=== PATIENT | female | born 1965 | race Caucasian/White ===

== ENCOUNTER → 2017-06-01 | Outpatient (CLI) | payer OTHER ==
[~2017-06-01] MED LIST: CRUTCH3 USE; HYDACE10B PO; NAPR500 PO; Norco 5-325 Ta1 EACH PO; Silvadene20 GM TOP
[2017-06-02 18:10] LABS: Microalbumin, Urine Quant. <5.000 mg/L (0.000-20.000); Protein, Urine Quantitative <5.0 mg/dL (0.0-11.9)
== END ==
LOC: LAB 14:30 → LAB SHORT 14:30 → LAB FUT 05-31 11:40
PROVIDERS: Internal Medicine Nephrology
DX: N18.3 Chronic kidney disease, stage 3 (moderate) (principal); N25.81 Secondary hyperparathyroidism of renal origin; D63.1 Anemia in chronic kidney disease; E55.9 Vitamin D deficiency, unspecified; E78.00 Pure hypercholesterolemia, unspecified; R76.9 Abnormal immunological finding in serum, unspecified; R94.5 Abnormal results of liver function studies; R94.6 Abnormal results of thyroid function studies
CPT/HCPCS: 81050; 82043; 84156

== ENCOUNTER 2022-11-21 06:32 | Day surgery (SDC) | payer BC ==
[~2022-11-21] VITALS: Ht 157.5 cm; Wt 76.1 kg
[2022-11-21] MEDS ORDERED: ALLO300 (07:10)
[2022-11-21] MEDS ORDERED: ASPI81CH (07:10)
[2022-11-21] MEDS ORDERED: ATORVASTATIN CA40 M1 (07:10)
[2022-11-21] MEDS ORDERED: THERA-D2000 UNIT (07:10)
[2022-11-21] MEDS ORDERED: DOTTI1 EA18 (07:11)
[2022-11-21] MEDS ORDERED: PROG100 (07:11)
[2022-11-21] MEDS ORDERED: METF500 (07:11)
[2022-11-21] MEDS ORDERED: LISI20 (07:11)
[2022-11-21] MEDS ORDERED: TRULICITY1.5 MG/0.1 (07:11)
[2022-11-21 08:49] VITALS: BP 115/68
== END 2022-11-21 08:43 | disposition home or self-care (01) ==
LOC: ORSCSDS 06:32
PROVIDERS: Internal Medicine Gastroenterology
PROC: 0DJD8ZZ Inspection of Lower Intestinal Tract, Via Natural or Artificial Opening Endoscopic (ICD-10-PCS; principal; 2022-11-21 08:00)
DX: Z12.11 Encounter for screening for malignant neoplasm of colon (principal); K57.30 Diverticulosis of large intestine without perforation or abscess without bleeding; I10 Essential (primary) hypertension; E11.9 Type 2 diabetes mellitus without complications; Z79.82 Long term (current) use of aspirin; Z79.84 Long term (current) use of oral hypoglycemic drugs; Z79.899 Other long term (current) drug therapy
CPT/HCPCS: 82947; J2704; J7120

== ENCOUNTER 2023-10-23 15:37 | Emergency (ER) | payer BC ==
[~2023-10-23] VITALS: Ht 157.5 cm; Wt 81.2 kg
[~2023-10-23 15:37] MED LIST changes: +ALLO300; +ASPI81CH; +ATORVASTATIN CA40 M1; +DOTTI1 EA18; +LISI20; +METF500; +PROG100; +THERA-D2000 UNIT; +TRULICITY1.5 MG/0.1
[2023-10-23] MEDS ORDERED: Ondansetron HCl 2 MG / ML 2ML Vial IV ONE (15:50)
[2023-10-23 17:42] LABS: BASOPHILS ABSOLUTE AUTO 0.05 K/mm3 (0.00-0.23); BASOPHILS PERCENT AUTO 1 % (0-2); EOSINOPHILS ABSOLUTE AUTO 0.09 K/mm3 (0.00-0.68); EOSINOPHILS PERCENT AUTO 1 % (0-6); Hematocrit 45.4 % (33.0-51.0); Hemoglobin 15.1 g/dL (11.5-16.0); IMMATURE GRAN ABSOLUTE AUTO 0.05 K/mm3 (0.00-0.10); IMMATURE GRAN PERCENT AUTO 1 % (0-1); LYMPHOCYTES ABSOLUTE AUTO 3.23 K/mm3 (0.84-5.20); LYMPHOCYTES PERCENT AUTO 32 % (21-46); MONOCYTES ABSOLUTE AUTO 0.66 K/mm3 (0.16-1.47); MONOCYTES PERCENT AUTO 7 % (4-13); Mean Corpuscular HGB 30.3 pg (26.0-34.0); Mean Corpuscular HGB Conc 33.3 g/dL (31.5-36.5); Mean Corpuscular Volume 91 fL (80-100); NEUTROPHILS ABSOLUTE AUTO 5.92 K/mm3 (1.96-9.15); NEUTROPHILS PERCENT AUTO 59 % (41-73); RDW Coefficient Variation 14.3 % (11.7-14.2); RDW Standard Deviation 47.3 fL (35.1-46.3); Red Blood Cell Count 4.99 M/mm3 (3.80-5.20)
[2023-10-23 17:54] LABS: Albumin, Blood 4.4 g/dL (3.4-5.0); Albumin/Globulin Ratio 1.2 (0.8-1.8); Bilirubin, Total 0.9 mg/dL (0.1-1.0); Bun/Creatinine Ratio 10.3 (12.0-20.0); Calcium, Blood 9.3 mg/dL (8.5-10.1); Creatinine, Blood 1.95 mg/dL (0.40-1.00); Globulin, Blood 3.8 g/dL (2.2-4.0); Potassium, Blood 4.3 mmol/L (3.5-5.5); Total Protein, Blood 8.2 g/dL (6.4-8.2)
[2023-10-23] MEDS ORDERED: Ondansetron 8 MG SoluTab SL ONE (19:30)
[2023-10-23 21:00] LABS: Influenza A, PCR NEGATIVE (NEGATIVE); Influenza B, PCR NEGATIVE (NEGATIVE); Resp Syncytial Virus, PCR NEGATIVE (NEGATIVE); SARS-Cov-2 (COVID-19) PCR, MMC NEGATIVE (NEGATIVE)
[2023-10-23] MEDS ORDERED: RX Prepack 2 Tabs Ondansetron ODT 4MG UD ONE (22:25)
[2023-10-23] MEDS ORDERED: Ondansetron Odt8 MG SL (22:31)
[2023-10-23 22:53] VITALS: BP 115/71
== END 2023-10-23 22:54 | disposition home or self-care (01) ==
LOC: ER 15:37
PROVIDERS: Emergency Medicine
DX: E86.0 Dehydration (principal); I10 Essential (primary) hypertension; E11.9 Type 2 diabetes mellitus without complications; Z79.82 Long term (current) use of aspirin; Z79.84 Long term (current) use of oral hypoglycemic drugs; Z79.899 Other long term (current) drug therapy; Z88.8 Allergy status to other drugs, medicaments and biological substances
CPT/HCPCS: 0241U; 80053; 84484; 85025; 93005; 93010; 99285-25; A9270